=== PATIENT | male | born 1980 | race Caucasian/White ===

== ENCOUNTER 2021-08-21 09:03 | Inpatient (IN) | payer MEDICAID ==
[~2021-08-21] VITALS: Ht 180.3 cm; Wt 61.7 kg
[2021-08-21] MEDS ORDERED: ESCI-8 PO (09:44)
[2021-08-21] MEDS ORDERED: BUSP5TAB20 PO (09:45)
[2021-08-21] MEDS ORDERED: LORA-1000 PO (09:45)
[2021-08-21 10:07] LABS: EOSINOPHILS % (AUTO) 1.1 % (1.0-6.0); HEMATOCRIT 45.4 % (41-53); HEMOGLOBIN 15.3 g/dL (13.5-17.5); LYMPHOCYTES # (AUTO) 1.4 K/uL (1.0-4.8); LYMPHOCYTES % (AUTO) 19.1 % (22.0-44.0); MEAN CORPUSCULAR HEMOGLOBIN 29.3 pg (26.0-34.0); MEAN CORPUSCULAR HGB CONC 33.6 G/dL (31.0-37.0); MEAN CORPUSCULAR VOLUME 87 fL (80-100); MONOCYTES # (AUTO) 0.6 K/uL (0.1-1.0); MONOCYTES % (AUTO) 7.8 % (2.0-9.0); NEUTROPHILS # (AUTO) 5.1 K/uL (1.8-7.7); PLATELET COUNT (AUTO) 336 K/uL (150-450); RED BLOOD CELL COUNT(AUTO) 5.21 MIL/uL (4.50-5.90); RED CELL DISTRIBUTION WIDTH 12.6 % (11.5-14.5)
[2021-08-21 10:22] LABS: ANION GAP 6 mmol/L (8-16); CALCIUM, TOTAL 9.5 mg/dL (8.8-10.5); CARBON DIOXIDE 31 mmol/L (22-29); CHLORIDE 105 mmol/L (98-107); CREATININE 0.93 mg/dL (0.60-1.30); GLOMERULAR FILTR. RATE CALC > 60 mL/min (>60); GLUCOSE,RANDOM 102 mg/dL (70-110); POTASSIUM 4.2 mmol/L (3.5-5.1); SODIUM SERUM 142 mmol/L (136-145); UREA NITROGEN, BLOOD 12 mg/dL (7-18)
[2021-08-21 10:28] LABS: ALANINE AMINOTRANSFERASE 25 U/L (12-78); ALBUMIN 4.4 g/dL (3.4-5.0); ALKALINE PHOSPHATASE 82 U/L (46-116); ASPARTATE AMINOTRANSFERASE 13 U/L (15-37); TOTAL PROTEIN, SERUM 7.9 g/dL (6.4-8.2)
[2021-08-21 10:32] LABS: AMPHET/METH SCREEN,URINE NEGATIVE (NEGATIVE); BARBITURATE SCREEN, URINE NEGATIVE (NEGATIVE); BENZODIAZEPINES SCREEN,URINE NEGATIVE (NEGATIVE); CANNABINOID SCREEN,URINE NEGATIVE (NEGATIVE); COCAINE SCREEN,URINE NEGATIVE (NEGATIVE); METHADONE SCREEN, URINE NEGATIVE (NEGATIVE); OPIATE SCREEN,URINE NEGATIVE (NEGATIVE)
[2021-08-21 10:33] LABS: PHENCYCLIDINE SCREEN,URINE NEGATIVE (NEGATIVE)
[2021-08-21 10:41] LABS: COVID AG,FIA SOURCE NASOPHARYNGEAL
[2021-08-21] MEDS ORDERED: LORazepam 2 MG TABLET PO PRN (11:30)
[2021-08-21] MEDS ORDERED: ZOLPIDEM TARTRATE 10 MG TABLET PO PRN (11:30)
[2021-08-21 13:30] VITALS: BP 128/78
[2021-08-21 16:46] VITALS: BP 131/78
[2021-08-21] MEDS: QUEtiapine FUMARATE 100 MG TABLET PO PRN (18:19)
[2021-08-22 08:30] VITALS: BP 132/86
[2021-08-22 12:51] LABS: CHOL/HDL RATIO 2.6 (4.2-7.3)
[2021-08-22 16:12] VITALS: BP 130/81
[2021-08-22] MEDS: BusPIRone HCL 5 MG TABLET PO SCH ×2 (16:16→20:13)
[2021-08-22] MEDS: MIRTAZAPINE 15 MG TABLET PO SCH (20:13)
[2021-08-23 08:00] VITALS: BP 150/95
[2021-08-23] MEDS: BusPIRone HCL 5 MG TABLET PO SCH ×3 (09:02→20:46)
[2021-08-23 17:18] VITALS: BP 138/88
[2021-08-23] MEDS: MIRTAZAPINE 15 MG TABLET PO SCH (20:46)
[2021-08-24 08:15] VITALS: BP 130/70
[2021-08-24] MEDS: BusPIRone HCL 5 MG TABLET PO SCH ×3 (08:51→20:16)
[2021-08-24 16:29] VITALS: BP 114/77
[2021-08-24] MEDS: MIRTAZAPINE 15 MG TABLET PO SCH (20:16)
[2021-08-25] MEDS: BusPIRone HCL 5 MG TABLET PO SCH ×3 (08:25→20:38)
[2021-08-25 11:03] VITALS: BP 123/76
[2021-08-25] MEDS ORDERED: MIRT-89 PO (14:35)
[2021-08-25 16:10] VITALS: BP 103/79
[2021-08-25] MEDS: MIRTAZAPINE 15 MG TABLET PO SCH (20:38)
[2021-08-26 08:00] VITALS: BP 112/81
[2021-08-26] MEDS: BusPIRone HCL 5 MG TABLET PO SCH ×3 (08:38→21:00)
[2021-08-26 16:32] VITALS: BP 119/62
[2021-08-26] MEDS: QUEtiapine FUMARATE 100 MG TABLET PO PRN (17:12)
[2021-08-26] MEDS: MIRTAZAPINE 15 MG TABLET PO SCH (21:00)
[2021-08-27] MEDS: BusPIRone HCL 5 MG TABLET PO SCH (08:54)
[2021-08-27 09:31] VITALS: BP 119/65
[2021-08-27 10:22] LABS: COVID AG,FIA SOURCE NASAL SWAB
== END 2021-08-27 13:10 | disposition home or self-care (01) | DRG 751 ==
LOC: EMS 09:08 → 3EI 12:12
DX: F33.2 Major depressive disorder, recurrent severe without psychotic features (principal); E44.0 Moderate protein-calorie malnutrition; R45.851 Suicidal ideations; E78.5 Hyperlipidemia, unspecified; F10.10 Alcohol abuse, uncomplicated; F19.10 Other psychoactive substance abuse, uncomplicated; Z20.822 Contact with and (suspected) exposure to COVID-19; G47.00 Insomnia, unspecified; Z59.00 Homelessness unspecified; Z79.899 Other long term (current) drug therapy; Z71.51 Drug abuse counseling and surveillance of drug abuser
CPT/HCPCS: 80053; 80061; 85025; 99285; G0480

== ENCOUNTER 2021-09-07 10:33 | Emergency (ER) | payer MEDICAID ==
[~2021-09-07] VITALS: Ht 180.3 cm; Wt 65.0 kg
[~2021-09-07 10:33] MED LIST: BUSP5TAB20 PO; MIRT-89 PO
[2021-09-07 10:35] VITALS: BP 123/76
[2021-09-07 11:04] LABS: BASOPHILS % (AUTO) 0.8 % (0.0-2.0); HEMATOCRIT 44.6 % (41-53); HEMOGLOBIN 14.8 g/dL (13.5-17.5); LYMPHOCYTES # (AUTO) 1.2 K/uL (1.0-4.8); LYMPHOCYTES % (AUTO) 14.7 % (22.0-44.0); MEAN CORPUSCULAR HEMOGLOBIN 29.4 pg (26.0-34.0); MEAN CORPUSCULAR HGB CONC 33.2 G/dL (31.0-37.0); MEAN CORPUSCULAR VOLUME 88 fL (80-100); MONOCYTES # (AUTO) 0.5 K/uL (0.1-1.0); MONOCYTES % (AUTO) 5.9 % (2.0-9.0); NEUTROPHILS # (AUTO) 6.1 K/uL (1.8-7.7); NEUTROPHILS % (AUTO) 77.6 % (40.0-70.0); PLATELET COUNT (AUTO) 257 K/uL (150-450); RED BLOOD CELL COUNT(AUTO) 5.04 MIL/uL (4.50-5.90); RED CELL DISTRIBUTION WIDTH 13.5 % (11.5-14.5)
[2021-09-07 11:11] LABS: ANION GAP 7 mmol/L (8-16); CALCIUM, TOTAL 9.2 mg/dL (8.8-10.5); CARBON DIOXIDE 32 mmol/L (22-29); CHLORIDE 106 mmol/L (98-107); CREATININE 0.91 mg/dL (0.60-1.30); GLOMERULAR FILTR. RATE CALC > 60 mL/min (>60); GLUCOSE,RANDOM 95 mg/dL (70-110); POTASSIUM 4.8 mmol/L (3.5-5.1); SODIUM SERUM 145 mmol/L (136-145); UREA NITROGEN, BLOOD 17 mg/dL (7-18)
[2021-09-07 11:20] LABS: ALANINE AMINOTRANSFERASE 32 U/L (12-78); ALBUMIN 4.2 g/dL (3.4-5.0); ALKALINE PHOSPHATASE 80 U/L (46-116); ASPARTATE AMINOTRANSFERASE 17 U/L (15-37); TOTAL PROTEIN, SERUM 7.5 g/dL (6.4-8.2)
[2021-09-07 11:23] LABS: COVID AG,FIA SOURCE NASOPHARYNGEAL
[2021-09-07 11:42] LABS: AMPHET/METH SCREEN,URINE NEGATIVE (NEGATIVE); BARBITURATE SCREEN, URINE NEGATIVE (NEGATIVE); BENZODIAZEPINES SCREEN,URINE NEGATIVE (NEGATIVE); CANNABINOID SCREEN,URINE NEGATIVE (NEGATIVE); COCAINE SCREEN,URINE NEGATIVE (NEGATIVE); METHADONE SCREEN, URINE NEGATIVE (NEGATIVE); OPIATE SCREEN,URINE NEGATIVE (NEGATIVE)
[2021-09-07 11:47] LABS: PHENCYCLIDINE SCREEN,URINE NEGATIVE (NEGATIVE)
[2021-09-07] MEDS ORDERED: LORazepam 2 MG TABLET PO ONE (12:15)
== END 2021-09-07 12:09 | disposition home or self-care (01) ==
LOC: EMS 10:33
DX: F41.9 Anxiety disorder, unspecified (principal); F31.9 Bipolar disorder, unspecified; Z20.822 Contact with and (suspected) exposure to COVID-19
CPT/HCPCS: 36415; 80053; 80307; 85025; 87426; 99283; G0480